=== PATIENT | male | born 1985 | race Caucasian/White ===

== ENCOUNTER 2021-11-13 08:24 | Outpatient (CLI) | payer OTHER, SELFPAY ==
--- NOTE | 2021-11-13 | ECHO_ITS ---
Patient Info Name: Bg Chavez Age: 35 years : 1985 Gender: Male Ht: 71 in Wt: 190 lbs BSA: 2.09 m2 HR: 52 bpm BP: 120 / 81 mmHg Technical Quality: Good Exam Date: 11/13/2021 9:31 AM Exam Location: [facility] Patient Status: Outpatient Admit Date: 11/13/2021 Staff Ordering Physician: Venkata Vásquez MD [employer] Lead: Isael Raymond RDCS, RT Attending Provider: Venkata Vásquez MD Referring Physician: Fahad SIDHU; Exam Type: CA echo doppler color flow Study Info Indications I45.89 - Other specified conduction disorders Complete two-dimensional, color flow and Doppler transthoracic echocardiogram is performed. Strain analysis performed. Summary 1. Complete two-dimensional, color flow and Doppler transthoracic echocardiogram is performed. 2. Left ventricular chamber dimension is normal. 3. Left ventricular systolic function is normal, estimated at 60-65%. 4. The left ventricular diastolic function is normal. 5. E/e' 6 is not elevated. 6. Global longitudinal strain is normal at -19.6%. 7. There is trace tricuspid valve regurgitation. Left Ventricle E/e' 6 is not elevated. Global longitudinal strain is normal at -19.6%. Left ventricular chamber dimension is normal. Left ventricular systolic function is normal, estimated at 60-65%. The left ventricular diastolic function is normal. Right Ventricle Right ventricular systolic function is normal and with normal TAPSE 2.6 cm. Right ventricular chamber dimension is normal. Left Atria Left atrial chamber dimension is normal. Right Atria Right atrial chamber dimension is normal. Aortic Valve The aortic valve is trileaflet. There is no aortic valve stenosis. There is no aortic valve regurgitation. Pulmonic Valve There is no pulmonic regurgitation. Mitral Valve There is no mitral valve stenosis. There is no mitral valve regurgitation. Tricuspid Valve There is trace tricuspid valve regurgitation. RVSP is not calculated due to an inadequate TR jet. Pericardium/Pleural There is no pericardial effusion. Inferior Vena Cava Normal inferior vena cava with >50% collapse upon inspiration consistent with normal right atrial pressure, 5 mmHg. Aorta The aortic root size at the sinus of Valsalva is normal. Left Ventricular Outflow Tract Name Value Normal LVOT 2D LVOT Diameter 2.0 cm LVOT Doppler LVOT Peak Gradient 4 mmHg LVOT Mean Gradient 2 mmHg LVOT VTI 20 cm LVOT VTI/AV VTI Ratio 0.7 LVOT Stroke Volume 61 ml LVOT CO 3.8 l/min LVOT CI 1.8 l/min/m2 Mitral Valve Name Value Normal MV Doppler MV Decel [place] 626 cm/s2 MV PHT
--- NOTE | 2021-11-13 | ECG_ITS ---
Measurements Intervals [place] Rate: 49 P: 81 [place]: 135 QRS: 49 QRSD: 102 T: 48 QT: 440 QTc: 401 Interpretive Statements SINUS BRADYCARDIA EARLY REPOLARIZATION BORDERLINE ECG NO PREVIOUS ECG AVAILABLE FOR COMPARISON Electronically Signed On 11-13-2021 14:05:09 CDT by Tunde Li M.D.
== END 2021-11-13 08:25 | disposition home or self-care (01) ==
LOC: ANHCARD 08:29
PROVIDERS: PCP Emergency Medicine; Visit Provider Emergency Medicine
DX: R94.31 Abnormal electrocardiogram [ECG] [EKG] (principal); R00.1 Bradycardia, unspecified; I45.10 Unspecified right bundle-branch block
CPT/HCPCS: 93005; 93306

== ENCOUNTER 2023-08-25 08:19 | Outpatient (CLI) | payer BC, SELFPAY ==
--- NOTE | ~2023-08-25 | US_ITS ---
EXAMINATION: US abdomen complete DATE: 08/25/2023 09:36 INDICATION: GENERALIZED ABD PAIN TECHNIQUE: Multiple grayscale and Doppler ultrasound images of the abdomen were obtained. COMPARISON: None available. FINDINGS: Pancreatic tail obscured, visualized portions within normal limits. The liver is normal wit h normal echogenicity and echotexture. No surface nodularity. Normal hepatopetal flow in the main por jasbir vein. The gallbladder is normal with no abnormal wall thickening, pericholecystic fluid or stones . The common bile duct measures 5 mm. There was no sonographic Raymond sign. The visualized portions o f the aorta and inferior vena cava are normal. The right kidney measures 11.5 x 3.7 x 3.9 cm. The left kidney measures 11.5 x 4.4 x 5.3 cm. The kidn eys demonstrate normal parenchymal echogenicity. There is no hydronephrosis. The spleen is normal in appearance and measures 11.5 cm. IMPRESSION: Normal abdominal ultrasound findings. Reviewed, dictated and finalized at location K. IVABLE CLERK
--- NOTE | ~2023-08-25 | XR_ITS ---
EXAMINATION: XR UGIAC wo kub DATE: 08/25/2023 09:59 INDICATION: Generalized abdominal pain and indigestion TECHNIQUE: The patient drank thick barium, gas-producing crystals, and thin barium. A total of 513 fl uoroscopic images of the esophagus, stomach, and proximal small bowel were obtained. Fluoroscopy expo sure time was 1.4 minutes. Total DAP was 8.546 Gycm^2 COMPARISON: None. FINDINGS: The esophagus is normal without mass or stricture. Esophageal motility is normal. There is no hiatal hernia. There is a single episode of gastroesophageal reflux with provocative maneuvers of a small amount of contrast extending to the distal third of the esophagus. The stomach and proximal s mall bowel are normal. IMPRESSION: 1. Single episode of a small amount of gastroesophageal reflux with provocative maneuvers. Otherwise normal upper GI study. Reviewed, dictated and finalized at location A. TITCHER ZIGZAG
== END 2023-08-25 08:20 | disposition home or self-care (01) ==
PROVIDERS: PCP Emergency Medicine; Visit Provider Emergency Medicine
DX: R10.84 Generalized abdominal pain (principal)
CPT/HCPCS: 74246; 76700

== ENCOUNTER 2023-12-26 14:42 | Emergency (ER) | payer BC, SELFPAY ==
[2023-12-26 14:50] VITALS: BP 125/84; PULSE 76; RESP 16; TEMP 36.2; O2SAT 100
[2023-12-26] MEDS: TETANUS,DIPHTHERIA,AC PERTUSSIS ADULT (0.5 ML) BOOSTRIX IM (15:18)
--- NOTE | 2023-12-26 15:23 | ED.SKABFB ---
HPI - Skin/Abscess/Foreign Bdy General Chief complaint: Skin/Abscess/Foreign Body Stated complaint: a piece of metal in left ear Time Seen by Provider: 12/26/23 15:01 Source: patient and RN notes reviewed Mode of arrival: ambulatory Limitations: no limitations History of Present Illness HPI narrative: Patient presents today stating there is a small piece of metal in his ear. 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 Reports some mild discomfort. No interventions to remove prior to arrival. Related Data Home Medications Medication Instructions Recorded Confirmed budesonide 0.5 mg/2 mL suspension 0.5 mg inhalation PRN PRN 12/26/23 12/26/23 for nebulization Shortness Of Breath Or Wheezing Allergies Allergy/AdvReac Type Severity Reaction Status Date / Time No Known Allergies Allergy Mild Verified 12/26/23 14:46 Review of Systems Review of Systems: CONSTITUTIONAL: Denies body aches, fever, chills, or sweats. EYES: Denies visual changes, redness, or discharge. ENT: Denies rhinorrhea, congestion, sore throat, or otalgia.+ left ear foreign body CARDIOVASCULAR: Denies chest pain, palpitations, or edema. RESPIRATORY: Denies cough or dyspnea. GASTROINTESTINAL: Denies abdominal pain, nausea, vomiting, or diarrhea. GENITOURINARY: Denies dysuria or hematuria. SKIN: Denies rash, itching, or wounds. MUSCULOSKELETAL: Denies back pain, joint pain, or myalgia. NEUROLOGIC: Denies headache, numbness, tingling, or weakness. PSYCH: Denies depression or anxiety. 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 Please see nursing chart for further information. There is no relevant family history pertinent to the presenting complaint Exam Narrative: GENERAL: Well-appearing, well-nourished, and in no acute distress. HEAD: Normocephalic, atraumatic. EYES: EOMI. No redness or drainage. Conjunctivae normal. ENT: Mucous membranes pink and moist. Left ear: Tiny round piece of metal lying in just in front of the TM, deep in the canal. TM appears normal. Canal appears normal. NECK: Normal AROM. CHEST: No respiratory distress. EXTREMITIES: Normal range of motion. No edema. SKIN: Warm, dry, no rash. Capillary refill normal. Normal skin turgor. NEURO: No focal deficits. Alert and oriented x3. Gait steady. PSYCH: Normal affect. No signs of depression or anxiety. Course Course Level of Care: Express Care Visit Vital Signs Vital signs: Vital Signs Temperature 97.2 F L 12/26/23 14:50 Pulse Rate 76 12/26/23 14:50 Respiratory Rate 16 12/26/23 14:50 Blood Pressure 125/84 12/26/23 14:50 Pulse Oximetry 100 12/26/23 14:50 Oxygen Delivery Room Air 12/26/23 14:50 Temperature 97.2 F L 12/26/23 14:50 Pulse Rate 76 12/26/23 14:50 Respiratory Rate 16 12/26/23 14:50 Blood Pressure 125/84 12/26/23 14:50 Pulse Oximetry 100 12/26/23 14:50 Oxygen Delivery Room Air 12/26/23 14:50 Reviewed
== END 2023-12-26 15:27 | disposition home or self-care (01) ==
PROVIDERS: Emergency Provider Nurse Practitioner; PCP Emergency Medicine
DX: T16.2XXA Foreign body in left ear, initial encounter (principal); W44.8XXA Other foreign body entering into or through a natural orifice, initial encounter; E78.00 Pure hypercholesterolemia, unspecified
CPT/HCPCS: 90471; 90715; 99212; A9270; G0463

== ENCOUNTER 2024-12-13 10:42 | Outpatient (CLI) | payer BC, SELFPAY ==
--- NOTE | ~2024-12-13 | MR_ITS ---
MRI of the left shoulder Technique: Axial proton-density fat-sat images, coronal proton density fat-sat and T2 fat-sat images, and sagittal T1-weighted and T2 fat-sat images were acquired. Clinical History: Pain Findings: No significant degenerative changes AC joint. No subacromial spur. Coracoclavicular, coraco acromial, and coracohumeral ligaments are intact. Supraspinatus and infraspinatus tendons are intact, without partial or full-thickness tear. There is mild tendinosis at the distal supraspinatus tendon. Subscapularis tendon is intact. Tendon of the abner g head of the biceps is intact. No labral tear evident. Inferior glenohumeral ligament is intact. No significant effusion or degenerative change of the gleno humeral joint. No fluid distention of the subacromial/subdeltoid bursa. No muscle atrophy or edema. Impression: No significant abnormality seen. Reviewed, dictated and finalized at [facility]. Impression: No significant abnormality seen.
== END 2024-12-13 10:43 | disposition home or self-care (01) ==
PROVIDERS: PCP Emergency Medicine
DX: M25.512 Pain in left shoulder (principal)
CPT/HCPCS: 73221